=== PATIENT | female | born 1990 | race Caucasian/White ===

== ENCOUNTER 2025-01-16 10:35 | Emergency (ER) | payer BC, SELFPAY ==
[2025-01-16 10:42] VITALS: BP 106/71
[2025-01-16 11:37] LABS: Urine Character Clear (Clear)
[2025-01-16 12:07] LABS: Urine Squamous Cell >30 /LPF (Few)
[2025-01-16 12:09] LABS: Urine Red Blood Cell None Seen /HPF (0-2)
--- NOTE | 2025-01-16 13:47 | EDRN ---
1305 Patient is brought back to room 34 via WC and with a male friend. The motor vehicle technician that brought them to the room informed this RN that they expressed discomfort with being in a room that 'appears to be for some other type of patient.' After the ER
tech returned to triage the male accompanying the patient walked over to this RN and requested the patient be moved to another room. This RN explained that this room was the next available with the other options being return to the waiting room or
use a hallway bed instead of the flex medical / crisis room. Male wind farm support specialist requested to speak to someone else about the matter. Encouraged and escorted the patient to the bench worker apprentice, Haley. While walking to labor expediter male wind farm support specialist stated the
patient is 'not complaining it's just that she's and uncomfortable there with nothing in the room.'
While bench worker apprentice speaking with patient, Dr. Green went to evaluated the patient and then provided the patient with DC instructions after reviewing lab results.
This RN had no interaction with the patient herself or assessment. Dr. Green aware.
--- NOTE | 2025-01-16 14:03 | ED.GENMED ---
History of Present Illness
General
Chief Complaint: Urinary Symptoms
Source: patient and spouse
Exam Limitations: none
Time Seen by Provider: 01/16/25 13:08
Nursing documentation reviewed up to this point in time: agreed with
History of Present Illness
History of Present Illness:
34-year-old female who is currently 13 weeks presents to the ER with her for evaluation of urinary issues. Patient reports that over the past week or 2 she noticed that she was having some darker than usual urine and with a
bad odor to it. She says that she thought she could be developing a UTI as she has had UTIs in the past and so she has been drinking plenty of fluids. She says her symptoms have improved a bit but she was still worried given her so
decided to come to the ER to be assessed. She has not had any dysuria or hematuria. She says she has had a little bit of increased frequency and bladder pressure but she is unsure if these are early symptoms or UTI related. She has not
had any flank pain or fever/chills. She is not having vaginal bleeding or discharge. She did have an ultrasound at 7 weeks to confirm IUP.
Review of Systems
Review of Systems
All Other Systems: ROS reviewed and negative except as documented in HPI and ROS
Constitutional: Denies fever or chills
: Reports frequency; Denies dysuria, flank pain or bleeding
Musculoskeletal: Denies neck pain or back pain
Phy Exam
Physical Exam
Physical Exam:
General: Well appearing and non-toxic
HEENT: protecting airway
Neck: appears supple
CV: No evidence of cyanosis
Resp: No accessory muscle use
Abd: Non-distended, nontender to deep palpation
Extremities: No deformities
Neuro: Alert, ambulatory
Psych: Normal affect
Skin: Intact
Scores
Heart Failure Risk
Heart Failure Risk Score: Not Applicable
Heart Score for Chest Pain Patients
STEMI patient?: Not applicable
Withdrawal Assessment of Alcohol
Withdrawal Assessment Completed?: Not applicable
Course
Orders/Labs/Results
Orders:
Orders
01/16/25 10:52
Urinalysis Reflex To Culture Urgent
Date Specimen was Collected: 01/16/25
Time Specimen was Collected: 10:44
Urine Microscopic Reflex Cult Urgent
Urine Culture Urgent
GISELA Source: U
Specimen Description:
Date Specimen was Collected: 01/16/25
Time Specimen was Collected: 10:44
Abnormal Lab Results
01/16/25
10:52
Leukocyte Esterase Rfl 2+ A
(Negative)
Urine WBC (Reflex) 11-15 A /HPF
(0-5)
Urine Bacteria (Reflex) Few A
(Negative)
Vital Signs
Initial and Last Documented VS:
Initial Vital Signs
Temp Pulse Resp BP Pulse Ox
36.5 C 73 17 106/71 100
01/16/25 10:42 01/16/25 10:42 01/16/25 10:42 01/16/25 10:42 01/16/25 10:42
Last Documented Vital Signs
Temp Pulse Resp BP Pulse Ox
36.5 C 73 17 106/71 100
01/16/25 10:42 01/16/25 10:42 01/16/25 10:42 01/16/25 10:42 01/16/25 10:42
MDM/Problems Addressed
Differential Diagnosis Includes:
UTI, early symptoms
MDM/Problems Addressed:
34-year-old female presents with urinary issues as described above. She is currently 13 weeks G1, P0. She has been trying plenty fluids and thinks her symptoms have improved as she says that urine is no longer foul-smelling or dark but
she was worried given her and decided to come to the ER for assessment. Vitals and exam as above. Her urinalysis is sent off and it showed negative nitrites, few bacteria with scant pyuria and many squamous cells�these findings suggest a
contaminated sample. Urine culture sent off. I did speak to the patient at length and given that she is with positive bacteria advised to take a course of antibiotics. Can follow-up on culture. She has follow-up scheduled for Friday
with [employer] OFFICER. All questions answered.
*Pulse Oximetry
SaO2: 100
Oxygen Mode of Delivery: Room air
Patient hypoxic: no (100%)
*Critical Care Note
Total Time (30-74mins, 75-104mins- exclusive of procedures): Not Applicable
Data Reviewed
Source: patient and spouse
ED Attending Note
-
Portions of this chart may have been created with voice recognition software.� Occasional wrong word or��sound alike� substitutions may have occurred due to the inherent limitations of voice recognition software.
Discharge Plan
Departure
Patient Disposition: Home (Routine Discharge)
Date of Disposition: 01/16/25
Time of Disposition: 13:19
Patient with high blood pressure during this ER visit?: No
Discharge Problem:
UTI (urinary tract infection)
Instructions: Urinary Tract Infection, Adult (DC)
Prescriptions:
New
cephalexin 500 mg capsule
500 mg PO TID 5 Days Qty: 15 0RF
Referrals:
UNKNOWN - PT DOES,NOT KNOW [Family Provider]
Activity Restrictions/Additional Instructions:
Thank you for visiting the Emergency Department at [facility].
1. Please schedule a follow up appointment as directed. Call first thing tomorrow morning to make an appointment.
2. If indicated, please take your medications as instructed and indicated on discharge paperwork.
3. If any of your symptoms do not improve, or persist, or become more severe within 6-12 hours, please return to the emergency department for further care.
4. Please return to the emergency department if you develop a headache, neck pain/stiffness, fever greater than 100.4F, chest pain, shortness of breath, persistent nausea, vomiting, slurred speech, difficulty walking, numbness/tingling, weakness,
signs of infection or any other symptoms that are worrisome to you.
Please call [phone] if you have any questions.
Interventions
Interventions:
*Risk Screen - Suicide Last Done: 01/16/25 10:43
*General Assessment Last Done: 01/16/25 10:43
*Neglect/Abuse Screening Last Done: 01/16/25 10:43
*ED COVID-19 Vaccine History Last Done: 01/16/25 10:43
*ED Influenza Vaccine History Last Done: 01/16/25 10:43
Discharge Date and Time
Print Language: PANAMANIAN
== END 2025-01-16 13:20 | disposition home or self-care (01) ==
LOC: EMR 10:35
PROVIDERS: Emergency Medicine; EMERGENCY PHYSICIAN Emergency Medicine
DX: O23.41 Unspecified infection of urinary tract in pregnancy, first trimester (principal); N39.0 Urinary tract infection, site not specified; Z87.440 Personal history of urinary (tract) infections; Z3A.13 13 weeks gestation of pregnancy
CPT/HCPCS: 99283; 81003; 81015; 87086